=== PATIENT | female | born 1970 | race Caucasian/White ===

== ENCOUNTER → 2019-02-01 | Outpatient (CLI) | payer OTHER ==
[2019-02-01 12:57] LABS: BUN/CREATININE RATIO 11; CREATININE SERUM 0.91 MG/DL (0.60-1.30); GFR ESTIMATED > 60
== END ==
LOC: LAB 12:24
PROVIDERS: ATTEND Internal Medicine Critical Care Medicine
DX: R05 Cough (principal); R06.00 Dyspnea, unspecified; G47.10 Hypersomnia, unspecified; G47.50 Parasomnia, unspecified; E07.9 Disorder of thyroid, unspecified
CPT/HCPCS: 36415; 82565; 84520

== ENCOUNTER → 2019-02-01 | Outpatient (CLI) | payer OTHER ==
[2019-02-01 12:39] LABS: BASOPHILS # (AUTO) 0.1 10^3/uL (0.0-0.1); BASOPHILS % (AUTO) 2 % (0-10); EOSINOPHILS # (AUTO) 0.3 10^3/uL (0.0-0.3); EOSINOPHILS % (AUTO) 4 % (0-10); HEMATOCRIT 32 % (35-52); HEMOGLOBIN 9.8 G/DL (11.5-16.0); LYMPHOCYTES % (AUTO) 31 % (12-44); MEAN CORPUSCULAR HEMOGLOBIN 22 PG (25-34); MEAN CORPUSCULAR HGB CONC 31 G/DL (32-36); MEAN CORPUSCULAR VOLUME 73 FL (80-99); MEAN PLATELET VOLUME 9.5 FL (7.4-10.4); MONOCYTES # (AUTO) 0.4 X 10^3 (0.0-1.0); MONOCYTES % (AUTO) 7 % (0-12); NEUTROPHILS # (AUTO) 3.6 X 10^3 (1.8-7.8); NEUTROPHILS % (AUTO) 57 % (42-75); PLATELET COUNT 371 10^3/uL (130-400); WHITE BLOOD COUNT 6.4 10^3/uL (4.3-11.0)
[2019-02-01 12:59] LABS: ALANINE AMINOTRANSFERASE 15 U/L (0-55); ALBUMIN 3.7 GM/DL (3.2-4.5); ALKALINE PHOSPHATASE 86 U/L (40-136); BILIRUBIN,TOTAL 0.3 MG/DL (0.1-1.0); BUN/CREATININE RATIO 11; CALCIUM 8.9 MG/DL (8.5-10.1); CARBON DIOXIDE 22 MMOL/L (21-32); CHLORIDE 108 MMOL/L (98-107); CHOLESTEROL 213 MG/DL (< 200); CREATININE SERUM 0.88 MG/DL (0.60-1.30); GFR ESTIMATED > 60; GLUCOSE 85 MG/DL (70-105); HDL CHOLESTEROL 47 MG/DL (40-60); POTASSIUM 3.9 MMOL/L (3.6-5.0); SODIUM 138 MMOL/L (135-145); TOTAL PROTEIN 7.3 GM/DL (6.4-8.2); TRIGLYCERIDES 112 MG/DL (<150); VLDL CHOLESTEROL 22 MG/DL (5-40)
--- NOTE | 2019-02-01 17:39 | Diagnostic Imaging Report ---
EXAM: Bilateral diagnostic mammogram INDICATION: Left breast lump. CORRELATION is made with prior mammogram from 09/13/2016. TECHNIQUE: 2D and 3D bilateral diagnostic mammography was performed. FINDINGS: Both breasts are heterogeneously dense, limiting the sensitivity of mammography. A BB marker was placed at the area of palpable abnormality, upper-outer left breast. No underlying abnormality is seen. No mass or malignant-appearing microcalcifications are seen. The axillae are unremarkable. IMPRESSION: BI-RADS 0. No mammographic features suspicious for malignancy are identified. Even so, sonographic interrogation of the area of palpable abnormality in the upper-outer left breast is recommended and will be performed today. ACR BI-RADS Category 0: Incomplete. (Needs additional imaging evaluation). Result letter will be mailed to the patient. Note: At least 10% of breast cancer is not imaged by mammography. Dictated by: Dictated on workstation # [id number]
--- NOTE | 2019-02-01 20:05 | Diagnostic Imaging Report ---
INDICATION: Left breast lump. FINDINGS: Sonographic interrogation of the area of interest in the upper-outer left breast was performed. No sonographic abnormality is seen. No solid or cystic mass is detected. IMPRESSION: No sonographic abnormality is detected. Close clinical and self breast exam is recommended to confirm stability of the palpable abnormality. ACR BI-RADS Category 1: Negative. Dictated by: Dictated on workstation # [id number]
== END ==
LOC: RAD 12:16
PROVIDERS: ATTEND Internal Medicine
DX: N63.20 Unspecified lump in the left breast, unspecified quadrant (principal); E03.9 Hypothyroidism, unspecified; R73.09 Other abnormal glucose; D64.9 Anemia, unspecified
CPT/HCPCS: 36415; 76642; 77066; 80053; 80061; 83036; 84443; 85025

== ENCOUNTER → 2019-03-03 | Outpatient (CLI) | payer OTHER ==
[~2019-03-03] MED LIST: RT-ALBUTEROL SULF 2.5 MG/3 ML PRE-MIX VIAL INH ONE
== END ==
LOC: RT 09:38 → EDUNIT# 09:45
PROVIDERS: ATTEND Internal Medicine Critical Care Medicine
DX: R05 Cough (principal); R06.00 Dyspnea, unspecified; G47.10 Hypersomnia, unspecified; G47.50 Parasomnia, unspecified; E07.9 Disorder of thyroid, unspecified
CPT/HCPCS: 94060; 94726; 94729

== ENCOUNTER 2020-03-03 12:24 | Emergency (ER) | payer OTHER ==
[~2020-03-03] VITALS: Ht 162.5 cm; Wt 121.8 kg
[2020-03-03] MEDS ORDERED: BENZONATATE 100 MG (TESSALON) CAPSULE PO ONE (12:32)
--- OUTSIDE RECORDS SUMMARY | 2020-03-03 12:34 | XMS REPORT ---
Author Author Hilda Syed [facility] Address [address] [place], [place] [id number] Care Team Providers Care Middle [employer] Technology Teacher Name Role Phone Gold Syed PCP Unavailable Allergies and Adverse Reactions Name Reaction Notes SULFA (SULFONAMIDES) PENICILLINS tramadol Plan of Treatment Not available. Medications Active Name Start Date Estimated Completion Date SIG Co mments tolterodine 4 mg oral capsule,extended release 24hr 09/10/2016 09/05/2017 take 1 capsule (4 mg) by oral route once daily for 90 days Synthroid 200 mcg oral tablet 09/10/2016 09/05/2017 ta ke 1 tablet (200 mcg) by oral route once daily for 90 days Synthroid 25 mcg oral tablet 09/10/2016 09/05/2017 paz e 1 tablet (25 mcg) by oral route once daily for 90 days Name Start Date Expiration Date SIG Comments metronidazole 500 mg oral tablet 09/20/2016 09/25/2016 take 1 tablet by oral route 2 times a day for 5 days Discontinued Name Start Date Discontinued Date SIG Comments oxybutynin chloride 5 mg oral tablet 09/10/2016 take 1 tablet (5 mg) by oral route 2 times per day Problem List Description Status Onset Hypothyroidism Active Overactive bladder Active Precancerous changes of the cervix Active Vital Signs Date Time BP-Sys(mm[Hg] BP-Mariann(mm[Hg]) HR(bpm) RR(rpm) Temp WT HT HC BMI BSA BMI Percentile O2 Sat(%) 09/10/2016 9:24:00 AM 148 mmHg 82 mmHg 70 bpm 18 rpm 99.5 F 245 lbs 64 in 42.05 kg/m2 2.24 m2 97 % Social History Name Description Comments Tobacco Former smoker History of Procedures Date Ordered Description Order Status 09/10/2016 10:30 AM URINALYSIS AUTO W/O SCOPE Reviewed 09/10/2016 12:00 AM CYTOPATH C/V THIN LAYER Reviewed 09/10/2016 12:00 AM Screening mammography, bilateral Reviewe d 09/10/2016 12:00 AM ASSAY THYROID STIM HORMONE Reviewed 09/10/2016 12:00 AM ASSAY OF FREE THYROXINE Reviewed Results Summary Data and Description Results 09/10/2016 10:30 AM Clarity Ur clear Color Ur lt . yellow Glucose Ur-sCnc negative Bilirub Ur Ql Strip negative Ketones Ur Ql Strip negative Sp Gr Ur Qn <=1.005 Hgb Ur Ql Strip trace-lysed pH Ur-LsCnc 7.0 Prot Ur Ql Strip negative Urobilinogen Ur-mCnc 0.2 Nitrite Ur Ql Strip negative WBC Est Ur Ql Strip negative 09/12/2016 10:15 AM TSH 8.750 uIU/mLFREE T4 1.04 History Of Immunizations Not available. History of Past Illness Name Date of Onset Comments Hypothyroidism Overactive bladder Precancerous changes of the cervix Hypothyroidism Sep 10 2016 9:26AM Encounter for gynecological examination without abnorm al finding Sep 10 2016 9:26AM Visit for screening mammogram Sep 10 2016 9:26AM Mixed incontinence Sep 10 2016 9:26AM Payers Insurance Name Company Name Plan Name Plan Number Policy Number Donnell cy Group Number [id number] N/ A History of Encounters Visit Date Visit Type Provider 09/10/2016 Office visit Gold Syed DO
--- OUTSIDE RECORDS SUMMARY | 2020-03-03 12:35 | XMS REPORT ---
Author Hilda Stack [facility] Address [address] [place], [place] [id number] Care Team Providers Care Strap Cutting Machine Operator Name Role Phone Gold Syed PCP Gold Syed PreferredProvider Allergies and Adverse Reactions Name Reaction Notes SULFA (SULFONAMIDES) PENICILLINS tramadol Plan of Treatment Planned Activity Comments Planned Date Planned Time Plan/Goal US ABD LTD (SINGLE ORGAN) 04/17/2018 12:00 AM Hepatobiliary scan 04/16/2018 12:00 AM Medications Active Name Start Date Estimated Completion Date SIG Co mments bupropion HCl 150 mg oral tablet extended release 24 hr 8 02/25/2019 TAKE 1 TABLET (150 MG) BY ORAL ROUTE ONCE DAILY for 90 days cyclobenzaprine 10 mg oral tablet 03/02/2018 TAKE 1 TABLET (10 MG) BY ORAL ROUTE 2 TIMES PER DAY NEEDED paroxetine HCl 20 mg oral tablet 03/02/2018 02/25/2019 TAKE 1 TABLET (20 MG) BY ORAL ROUTE ONCE DAILY FOR 30 DAYS for 90 days ProAir HFA 90 mcg/actuation inhalation HFA aerosol inhaler 2017 INHALE 1 PUFF (90 MCG) BY INHALATION ROUTE EVERY 6 HOURS NEEDED Synthroid 200 mcg oral tablet 03/02/2018 TA KE 1 TABLET (200 MCG) BY ORAL ROUTE ONCE DAILY FOR 90 DAYS Synthroid 25 mcg oral tablet 03/02/2018 PAZ E 1 TABLET (25 MCG) BY ORAL ROUTE ONCE DAILY FOR 90 DAYS Name Start Date Expiration Date SIG Comments metronidazole 500 mg oral tablet 09/20/2016 09/25/2016 take 1 tablet by oral route 2 times a day for 5 days promethazine 25 mg oral tablet 01/26/2018 01/26/2018 T SONU 1 TABLET (25 MG) BY ORAL ROUTE ONCE DAILY AT BEDTIME NEEDED Discontinued Name Start Date Discontinued Date SIG Comments oxybutynin chloride 5 mg oral tablet 09/10/2016 take 1 tablet (5 mg) by oral route 2 times per day tolterodine 4 mg oral capsule,extended release 24hr 09/10/2016 07/21/2017 take 1 capsule (4 mg) by oral route once daily for 90 days doxycycline hyclate 100 mg oral tablet 11/25/2016 01/01/2017 take 1 tablet (100 mg) by oral route 2 times per day prednisone 20 mg oral tablet 11/25/2016 01/01/2017 paz e 1 tablet (20 mg) by oral route once daily for 5 days Breo Ellipta 200-25 mcg/dose inhalation blister with device 11/2501/01/2017 inhale 1 puff by inhalation route once daily at the same time each day Didn't like the powder Dulera 200-5 mcg/actuation inhalation HFA aerosol inhaler 01/02/20 17 inhale 2 puffs by inhalation route every 12 hours Dulera 200-5 mcg/actuation inhalation HFA aerosol inhaler 017 09/30/2017 INHALE 2 PUFFS BY INHALATION ROUTE EVERY 12 HOURS Toviaz 8 mg oral tablet extended release 24 hr 07/21/2017 1 12/02/2016 take 1 tablet (8 mg) by oral route once daily for 90 days $300 co-pay Levaquin 500 mg oral tablet 07/29/2017 09/15/2017 take 1 tablet by oral route once a day for 7 days benzonatate 200 mg oral capsule 07/29/2017 03/02/2018 take 1 capsule (200 mg) by oral route 3 times per day as needed for cough ciprofloxacin HCl 500 mg oral tablet 09/15/2017 03/02/2018 take 1 tablet (500 mg) by oral route every 12 hours for 5 days Symbicort 160-4.5 mcg/actuation inhalation HFA aerosol inhal er 09/30/2017 10/02/2017 inhale 2 puffs by inhalation route 2 sharla es per day in the morning and evening $300 co-pay tolterodine 4 mg oral capsule,extended release 24hr 10/02/2017 10/08/2017 take 1 capsule (4 mg) by oral route once daily for 90 days oxybutynin chloride 10 mg oral tablet extended release 24hr 10/0803/02/2018 take 1 tablet (10 mg) by oral route once daily for 90 days prednisone 20 mg oral tablet 03/02/2018 04/16/2018 paz e 2 tablets (40 mg) by oral route once daily for 3 days then 1 tablet daily for 3 days then 0.5 daily x 2 days tolterodine 4 mg oral capsule,extended release 24hr 03/02/2018 04/16/2018 take 1 capsule (4 mg) by oral route once daily for 90 days "cannot afford this" Advair Diskus 250-50 mcg/dose inhalation blister with device 03/02/2018 04/16/2018 inhale 1 puff by inhalation route 2 time s per day in the morning and evening approximately 12 hours apart "cannot afford it" Problem List Description Status Onset Hypothyroidism Active Overactive bladder Active Precancerous changes of the cervix Active Vital Signs Date Time BP-Sys(mm[Hg] BP-Mariann(mm[Hg]) HR(bpm) RR(rpm) Temp WT HT HC BMI BSA BMI Percentile O2 Sat(%) 04/16/2018 2:53:00 PM 138 mmHg 84 mmHg 75 bpm 20 rpm 98.8 F 259 lbs 64 in 44.4568 kg/m 2.3032 m 97 % 03/02/2018 2:25:00 PM 142 mmHg 72 mmHg 94 bpm 18 rpm 98.1 F 259 lbs 64 in 44.46 kg/m2 2.30 m2 97 % 09/15/2017 2:35:00 PM 136 mmHg 80 mmHg 80 bpm 18 rpm 99.7 F 254 lbs 64 in 43.5986 kg/m 2.2809 m 97 % 07/29/2017 10:56:00 AM 148 mmHg 80 mmHg 84 bpm 22 rpm 98.9 F 255 lbs 64 in 43.77 kg/m2 2.29 m2 97 % 04/10/2017 9:16:00 AM 132 mmHg 82 mmHg 91 bpm 18 rpm 97.5 F 256.125 lbs 64 i n 43.9633 kg/m 2.2904 m 98 % 01/01/2017 10:42:00 AM 128 mmHg 70 mmHg 64 bpm 18 rpm 98.4 F 249 lbs 64 in 42.74 kg/m2 2.26 m2 97 % 11/25/2016 10:48:00 AM 126 mmHg 70 mmHg 76 bpm 20 rpm 98.5 F 245 lbs 64 in 42.0537 kg/m 2.2401 m 98 % 09/10/2016 9:24:00 AM 148 mmHg 82 mmHg 70 bpm 18 rpm 99.5 F 245 lbs 64 in 42.0537 kg/m 2.24 m2 97 % Social History Name Description Comments Tobacco Former smoker History of Procedures Date Ordered Description Order Status 09/10/2016 10:30 AM URINALYSIS AUTO W/O SCOPE Reviewed 09/10/2016 12:00 AM CYTOPATH C/V THIN LAYER Reviewed 09/10/2016 12:00 AM Screening mammography, bilateral Reviewe d 09/10/2016 12:00 AM ASSAY THYROID STIM HORMONE Reviewed 09/10/2016 12:00 AM ASSAY OF FREE THYROXINE Reviewed 07/29/2017 12:00 AM CHEST X-RAY 2VW FRONTAL&LATL Reviewed 09/15/2017 2:56 PM URINALYSIS AUTO W/O SCOPE Reviewed 03/02/2018 12:00 AM RADEX SHOULDER COMPLETE MINIMUM 2 VIEWS Reviewed Results Summary Date and Description Results 09/10/2016 10:30 AM Clarity [...] 10:15 AM TSH 8.750 uIU/mLFREE T4 1.04 09/15/2017 2:56 PM Clarity Ur cloudy Urine-[place] r lt. yellow Glucose Ur-sCnc negative Bilirub Ur Ql negative Ketones Ur Ql Strip negative Sp Gr Ur Qn 1.015 Hgb Ur Ql Strip trace- intact pH Ur-LsCnc 7.0 Prot Ur Ql Strip negative Urobilinogen Ur-mCnc 0.2 Nitrite Ur Ql Strip negative WBC # Ur negative History Of Immunizations Not available. History of Past Illness Name Date of Onset Comments Hypothyroidism Overactive bladder Precancerous changes of the cervix Hypothyroidism Sep 10 2016 9:26AM Encounter for gynecological examination without abnorm al finding Sep 10 2016 9:26AM Visit for screening mammogram Sep 10 2016 9:26AM Mixed incontinence Sep 10 2016 9:26AM Allergic bronchitis, mild persistent, with acute exace rbation Nov 25 2016 10:50AM Chronic bronchitis Jan 01 2017 10:44AM Depression with anxiety Apr 10 2017 9:18AM Acute bronchitis Jul 29 2017 10:59AM Dysuria Sep 15 2017 2:37PM Shoulder pain, right Mar 02 2018 2:28PM Right upper quadrant abdominal pain Apr 16 2018 2:54PM RUQ pain Apr 17 2018 11:32AM Nausea Apr 17 2018 11:32AM Payers Insurance Name Company Name Plan Name Plan Number Policy Number Donnell cy Group Number Start Date [facility] [id number] N[facility]A [id number], [facility] History of Encounters Visit Date Visit Type Provider 04/16/2018 Office visit Gold Syed DO 03/02/2018 Office visit Gold Syed DO 09/15/2017 Office visit Gold Syed DO 07/29/2017 Office visit Gold Syed DO 04/10/2017 Office visit Gold Syed DO 01/01/2017 Office visit Gold Syed DO 11/25/2016 Office visit Gold Syed DO 09/10/2016 Office visit Gold Syed DO
--- OUTSIDE RECORDS SUMMARY | 2020-03-03 12:35 | XMS REPORT ---
Author Author Hilda Syed [facility] Address [address] [place], [place] [address] Care Team Providers Care Tattoo Technician Name Role Phone Gold Syed PCP Gold Syed PreferredProvider Allergies and Adverse Reactions Name Reaction Notes SULFA (SULFONAMIDES) PENICILLINS tramadol Plan of Treatment Not available. Medications Active Name Start Date Estimated Completion Date SIG Co mments paroxetine HCl 20 mg oral tablet 04/10/2017 10/07/2017 take 1 tablet (20 mg) by oral route once daily for 30 days benzonatate 200 mg oral capsule 07/29/2017 take 1 capsule (200 mg) by oral route 3 times per day as needed for cough cyclobenzaprine 10 mg oral tablet 09/15/2017 take 1 tablet (10 mg) by oral route 2 times per day as needed ciprofloxacin HCl 500 mg oral tablet 09/15/2017 take 1 tablet (500 mg) by oral route every 12 hours for 5 days Synthroid 200 mcg oral tablet 09/26/2017 09/21/2018 TA KE 1 TABLET (200 MCG) BY ORAL ROUTE ONCE DAILY FOR 90 DAYS Synthroid 25 mcg oral tablet 09/26/2017 09/21/2018 PAZ E 1 TABLET (25 MCG) BY ORAL ROUTE ONCE DAILY FOR 90 DAYS Advair Diskus 250-50 mcg/dose inhalation blister with device inhale 1 puff by inhalation route 2 times per day in the morning and evening approximately 12 hours apart tolterodine 4 mg oral capsule,extended release 24hr 10/02/2017 take 1 capsule (4 mg) by oral route once daily for 90 days Name Start Date Expiration Date SIG Comments metronidazole 500 mg oral tablet 09/20/2016 09/25/2016 take 1 tablet by oral route 2 times a day for 5 days bupropion HCl 150 mg oral tablet extended release 24 hr 07/08/2017 07/08/2017 TAKE 1 TABLET (150 MG) BY ORAL ROUTE ONCE DAILY ProAir HFA 90 mcg/actuation inhalation HFA aerosol inhaler 1 11/26/2016 09/26/2017 INHALE 1 PUFF (90 MCG) BY INHALATION ROUTE EVERY 6 DEENA RS NEEDED Discontinued Name Start Date Discontinued Date [...] mg oral tablet extended release 24 hr 07/21/201712/02/2016 take 1 tablet (8 mg) by oral route once daily for 90 days Toviaz 8 mg oral tablet extended release 24 hr 07/21/201712/02/2016 take 1 tablet (8 mg) by oral route once daily for 90 days $300 co-pay Levaquin 500 mg oral tablet 07/29/2017 09/15/2017 take 1 tablet by oral route once a day for 7 days promethazine 25 mg oral tablet 07/29/2017 09/15/2017 t bam 1 tablet (25 mg) by oral route once daily at bedtime as needed Symbicort 160-4.5 mcg/actuation inhalation HFA aerosol inhal er 09/30/2017 10/02/2017 inhale 2 puffs by inhalation route 2 sharla es per day in the morning and evening Symbicort 160-4.5 mcg/actuation inhalation HFA aerosol inhal er 09/30/2017 10/02/2017 inhale 2 puffs by inhalation route 2 sharla es per day in the morning and evening $300 co-pay Problem List Description Status Onset Hypothyroidism Active Overactive bladder Active Precancerous changes of the cervix Active Vital Signs Date Time BP-Sys(mm[Hg] BP-Mariann(mm[Hg]) HR(bpm) RR(rpm) Temp WT HT HC BMI BSA BMI Percentile O2 Sat(%) 09/15/2017 2:35:00 PM 136 mmHg 80 mmHg 80 bpm 18 rpm 99.7 F 254 lbs 64 in 43.60 kg/m2 2.28 m2 97 % 07/29/2017 10:56:00 AM 148 mmHg 80 mmHg 84 bpm 22 rpm 98.9 F 255 lbs 64 in 43.7702 kg/m 2.2854 m 97 % 04/10/2017 9:16:00 AM 132 mmHg 82 mmHg 91 bpm 18 rpm 97.5 F 256.125 lbs 64 i n 43.96 kg/m2 2.29 m2 98 % 01/01/2017 10:42:00 AM 128 mmHg 70 mmHg 64 bpm 18 rpm 98.4 F 249 lbs 64 in 42.7403 kg/m 2.2583 m 97 % 11/25/2016 10:48:00 AM 126 mmHg 70 mmHg 76 bpm 20 rpm 98.5 F 245 lbs 64 in 42.05 kg/m2 2.24 m2 98 % 09/10/2016 9:24:00 AM 148 mmHg 82 mmHg 70 bpm 18 rpm 99.5 F 245 lbs 64 in 42.0537 kg/m 2.2401 m 97 % Social History Name Description Comments [...] 2:56 PM URINALYSIS AUTO W/O SCOPE Reviewed Results Summary Date and Description Results [...] 1.04 09/15/2017 2:56 PM Clarity Ur cloudy Urine-[place] r lt. yellow Glucose Ur-sCnc negative Bilirub [...] 2017 10:59AM Dysuria Sep 15 2017 2:37PM Payers Insurance Name Company Name Plan Name Plan Number Policy Number Donnell Group Number Start Date [facility] [id number] N/A [id number] N/ A History of Encounters Visit Date Visit Type Provider 09/15/2017 Office visit Gold Syed DO 07/29/2017 Office visit Gold Syed DO 04/10/2017 Office visit Gold Syed DO 01/01/2017 Office visit Gold Syed DO 11/25/2016 Office visit Gold Syed DO 09/10/2016 Office visit Gold Syed DO
--- OUTSIDE RECORDS SUMMARY | 2020-03-03 12:35 | XMS REPORT ---
Author Author Hilda Syed Organization [facility] Address [address] [place], [place] [address] Care Team Providers Care Press Department Manager Name Role Phone Gold Syed PCP Unavailable Gold Syed PreferredProvider Unavailable Allergies and Adverse Reactions Name Reaction Notes SULFA (SULFONAMIDES) PENICILLINS tramadol Plan of Treatment Not available. Medications Active Name Start Date Estimated Completion Date SIG Co mments Synthroid 200 mcg oral tablet 09/10/2016 09/05/2017 ta ke 1 tablet (200 mcg) by oral route once daily for 90 days Synthroid 25 mcg oral tablet 09/10/2016 09/05/2017 paz e 1 tablet (25 mcg) by oral route once daily for 90 days Dulera 200-5 mcg/actuation inhalation HFA aerosol inhaler 01/02/20 17 inhale 2 puffs by inhalation route every 12 hours ProAir HFA 90 mcg/actuation inhalation HFA aerosol inhaler 017 inhale 1 puff (90 mcg) by inhalation route every 6 hours as needed Dulera 200-5 mcg/actuation inhalation HFA aerosol inhaler 017 INHALE 2 PUFFS BY INHALATION ROUTE EVERY 12 HOURS paroxetine HCl 20 mg oral tablet 04/10/2017 10/07/2017 take 1 tablet (20 mg) by oral route once daily for 30 days Toviaz 8 mg oral tablet extended release 24 hr 07/21/2017 take 1 tablet (8 mg) by oral route once daily for 90 days Levaquin 500 mg oral tablet 07/29/2017 take 1 tablet by oral route once a day for 7 days benzonatate 200 mg oral capsule 07/29/2017 take 1 capsule (200 mg) by oral route 3 times per day as needed for cough promethazine 25 mg oral tablet 07/29/2017 t bam 1 tablet (25 mg) by oral route once daily at bedtime as needed Name Start Date Expiration Date SIG Comments metronidazole 500 mg oral tablet 09/20/2016 09/25/2016 take 1 tablet by oral route 2 times a day for 5 days bupropion HCl 150 mg oral tablet extended release 24 hr 07/08/2017 07/08/2017 TAKE 1 TABLET (150 MG) BY ORAL ROUTE ONCE DAILY Discontinued Name Start Date Discontinued Date SIG [...] time each day Didn't like the powder Problem List Description Status Onset Hypothyroidism Active Overactive bladder Active Precancerous changes of the cervix Active Vital Signs Date Time BP-Sys(mm[Hg] BP-Mariann(mm[Hg]) HR(bpm) RR(rpm) Temp WT HT HC BMI BSA BMI Percentile O2 Sat(%) 07/29/2017 10:56:00 AM 148 mmHg 80 mmHg [...] 12:00 AM CHEST X-RAY 2VW FRONTAL&LATL Reviewed Results Summary Date and Description Results [...] 9:18AM Acute bronchitis Jul 29 2017 10:59AM Payers Insurance Name Company Name Plan Name Plan Number Policy Number Donnell cy Group Number Start Date [facility] [id number] N[id number] N/ A History of Encounters Visit Date Visit Type Provider 07/29/2017 Office visit Gold Syed DO 04/10/2017 Office visit Gold Syed DO 01/01/2017 Office visit Gold Syed DO 11/25/2016 Office visit Gold Syed DO 09/10/2016 Office visit Gold Syed DO
--- OUTSIDE RECORDS SUMMARY | 2020-03-03 12:35 | XMS REPORT ---
Author Author Hilda Syed Organization [facility] Address [address] [place], [place] [address] Care Team Providers Care Director Of Advertising Sales Name Role Phone Gold Syed PCP Unavailable [...] inhalation route every 6 hours as needed bupropion HCl 150 mg oral tablet extended release 24 hr 01/01/2017 take 1 tablet (150 mg) by oral route once daily Name Start Date Expiration Date SIG Comments metronidazole 500 mg oral tablet 09/20/2016 09/25/2016 take 1 tablet by oral route 2 times a day for 5 days Discontinued Name Start Date Discontinued Date SIG Comments oxybutynin chloride 5 mg oral tablet 09/10/2016 take 1 tablet (5 mg) by oral route 2 times per day doxycycline hyclate 100 mg oral tablet 11/25/2016 [...] HC BMI BSA BMI Percentile O2 Sat(%) 01/01/2017 10:42:00 AM 128 mmHg 70 mmHg [...] 10:50AM Chronic bronchitis Jan 01 2017 10:44AM Payers Insurance Name Company Name Plan Name Plan Number Policy Number Donnell cy Group Number [id number] N/ A History of Encounters Visit Date Visit Type Provider 01/01/2017 Office visit Gold Syed DO 11/25/2016 Office visit Gold Syed DO 09/10/2016 Office visit Gold Syed DO
--- OUTSIDE RECORDS SUMMARY | 2020-03-03 12:35 | XMS REPORT ---
Author Author Hilda Syed [facility] Address [address] [place], [place] [id number] Care Team Providers Care Maintenance Mechanic Helper Name Role Phone Gold Syed PCP Gold Syed PreferredProvider Allergies and Adverse Reactions Name Reaction Notes SULFA (SULFONAMIDES) PENICILLINS tramadol Plan of Treatment Planned Activity Comments Planned Date Planned Time Plan/Goal Hepatobiliary scan 04/16/2018 12:00 AM US ABD LTD (SINGLE ORGAN) 04/17/2018 12:00 AM Medications Active Name Start Date [...] 1.04 09/15/2017 2:56 PM Clarity Ur cloudy Urine-[place] r lt. yellow Glucose Ur-sCnc negative Bilirub [...] Number Donnell cy Group Number Start Date [facility] [id number] N/A [facility] [id number] [facility], 2016 History of Encounters Visit Date [...]
--- OUTSIDE RECORDS SUMMARY | 2020-03-03 12:35 | XMS REPORT ---
Author Author Hilda Syed [facility] Address [address] [place], [place] [address] Care Team Providers Care Laborer Electroplating Name Role Phone Gold Syed PCP Gold [...] oral route once daily for 90 days benzonatate 200 mg oral capsule 07/29/2017 [...] ORAL ROUTE ONCE DAILY FOR 90 DAYS Symbicort 160-4.5 mcg/actuation inhalation HFA aerosol inhaler 1 11/30/2016 inhale 2 puffs by inhalation route 2 times per day in the morning and evening Name Start Date Expiration Date SIG Comments [...] PUFFS BY INHALATION ROUTE EVERY 12 HOURS Levaquin 500 mg oral tablet 07/29/2017 09/15/2017 take 1 tablet by oral route once a day for 7 days promethazine 25 mg oral tablet 07/29/2017 09/15/2017 t bam 1 tablet (25 mg) by oral route once daily at bedtime as needed Problem List Description Status Onset Hypothyroidism Active [...] 1.04 09/15/2017 2:56 PM Clarity Ur cloudy Urine-[place] r lt. yellow Glucose Ur-sCnc negative Bilirub [...] Number Donnell cy Group Number Start Date [facility] [id number] N/A [facility] [id number] N/ A History of Encounters Visit Date Visit Type Provider 09/15/2017 Office visit Gold Syed DO 07/29/2017 Office visit Gold Syed DO 04/10/2017 Office visit Gold Syed DO 01/01/2017 Office visit Gold Syed DO 11/25/2016 Office visit Gold Syed DO 09/10/2016 Office visit Gold Syed DO
--- OUTSIDE RECORDS SUMMARY | 2020-03-03 12:35 | XMS REPORT ---
Author Author Hilda Syed [facility] Address [address] [place], [place] [id number] Care Team Providers Care Pin Inserter Regulator Name Role Phone Gold Syed PCP Unavailable Gold Syed PreferredProvider Unavailable Allergies and Adverse Reactions Name Reaction Notes SULFA (SULFONAMIDES) PENICILLINS tramadol Plan of Treatment Not available. Medications Active Name Start Date Estimated Completion Date SIG Co mments Dulera 200-5 mcg/actuation inhalation HFA aerosol inhaler [...] route every 12 hours for 5 days Name Start Date Expiration Date SIG Comments Synthroid 200 mcg oral tablet 09/10/2016 09/05/2017 ta ke 1 tablet (200 mcg) by oral route once daily for 90 days Synthroid 25 mcg oral tablet 09/10/2016 09/05/2017 paz e 1 tablet (25 mcg) by oral route once daily for 90 days metronidazole 500 mg oral tablet 09/20/2016 09/25/2016 [...] time each day Didn't like the powder Levaquin 500 mg oral tablet 07/29/2017 09/15/2017 [...] 1.04 09/15/2017 2:56 PM Clarity Ur cloudy Urine-[place] r lt. yellow Glucose Ur-sCnc negative Bilirub [...] Number Donnell cy Group Number Start Date [facility] [id number] N[id number] N/ A History of Encounters Visit Date Visit Type Provider 09/15/2017 Office visit Gold Syed DO 07/29/2017 Office visit Gold Syed DO 04/10/2017 Office visit Gold Syed DO 01/01/2017 Office visit Gold Syed DO 11/25/2016 Office visit Gold Syed DO 09/10/2016 Office visit Gold Syed DO
--- OUTSIDE RECORDS SUMMARY | 2020-03-03 12:35 | XMS REPORT ---
Author Author Hilda Syed [facility] Address [address] [place], [place] [phone] Care Team Providers Care Steam Room Attendant Name Role Phone Gold Syed PCP Gold [...] 1.04 09/15/2017 2:56 PM Clarity Ur cloudy Urine-[place] r lt. yellow Glucose Ur-sCnc negative Bilirub [...] Number Donnell cy Group Number Start Date [facility] [id number] N[id number] [facility], 2016 History of Encounters Visit Date Visit [...]
--- OUTSIDE RECORDS SUMMARY | 2020-03-03 12:35 | XMS REPORT ---
Author Hilda Stack Organization [facility] Address [address] [place], [place] [phone] Care Team Providers Care Rim Technician Name Role Phone Gold Syed PCP Unavailable Allergies and Adverse Reactions Name Reaction Notes SULFA (SULFONAMIDES) PENICILLINS tramadol Plan of Treatment Planned Activity Comments Planned Date Planned Time Plan/Goal Pap smear 09/10/2016 12:00 AM TSH 09/10/2016 12:00 AM T4 FREE 09/10/2016 12:00 AM Medications Active Name Start Date [...] oral route once daily for 90 days Discontinued Name Start Date Discontinued Date [...] Comments Tobacco Former smoker History of Procedures Not available. Results Summary Not available. History Of Immunizations Not available. History of [...] Donnell cy Group Number [id number] N/ A History of Encounters Visit Date Visit Type Provider 09/10/2016 Office visit Gold Syed DO
--- OUTSIDE RECORDS SUMMARY | 2020-03-03 12:36 | XMS REPORT ---
Author Author Hilda Syed [facility] Address [address] [place], [place] [phone] Care Team Providers Care Gear Inspector Name Role Phone oGld Syed PCP Gold Syed PreferredProvider Allergies and Adverse Reactions Name Reaction Notes SULFA (SULFONAMIDES) PENICILLINS tramadol Plan of Treatment Not available. Medications Active Name Start Date Estimated Completion Date SIG Co mments prednisone 20 mg oral tablet 03/02/2018 paz e 2 tablets (40 mg) by oral route once daily for 3 days then 1 tablet daily for 3 days then 0.5 daily x 2 days tolterodine 4 mg oral capsule,extended release 24hr 03/02/2018 02/25/2019 take 1 capsule (4 mg) by oral route once daily for 90 days Advair Diskus 250-50 mcg/dose inhalation blister with device 02/03 inhale 1 puff by inhalation route 2 times per day in the morning and evening approximately 12 hours apart bupropion HCl 150 mg oral tablet extended [...] oral route once daily for 90 days Problem List Description Status Onset Hypothyroidism Active Overactive bladder Active Precancerous changes of the cervix Active Vital Signs Date Time BP-Sys(mm[Hg] BP-Mariann(mm[Hg]) HR(bpm) RR(rpm) Temp WT HT HC BMI BSA BMI Percentile O2 Sat(%) 03/02/2018 2:25:00 PM 142 mmHg 72 mmHg 94 bpm 18 rpm 98.1 F 259 lbs 64 in 44.4568 kg/m 2.3032 m 97 % 09/15/2017 2:35:00 PM 136 mmHg [...] 1.04 09/15/2017 2:56 PM Clarity Ur cloudy Urine-[place] r lt. yellow Glucose Ur-sCnc negative Bilirub [...] Shoulder pain, right Mar 02 2018 2:28PM Payers Insurance Name Company Name Plan Name Plan Number Policy Number Donnell cy Group Number Start Date [facility] [id number] N/A BCBS [facility] [id number] [facility], 2016 History of Encounters Visit Date Visit Type Provider 03/02/2018 Office visit Gold Syed DO 09/15/2017 Office visit Gold Syed DO 07/29/2017 Office visit Gold Syed DO 04/10/2017 Office visit Gold Syed DO 01/01/2017 Office visit Gold Syed DO 11/25/2016 Office visit Gold Syed DO 09/10/2016 Office visit Gold Syed DO
--- OUTSIDE RECORDS SUMMARY | 2020-03-03 12:36 | XMS REPORT ---
Author Author Hilda Syed Organization [facility] Address [address] [place], [place] [phone] Care Team Providers Care District Plant Supervisor Name Role Phone Gold Syed PCP Unavailable [...] C/V THIN LAYER Reviewed 09/10/2016 12:00 AM ASSAY THYROID STIM HORMONE [...] Number Donnell cy Group [facility] [id number] N/ A History of Encounters Visit Date Visit Type Provider 09/10/2016 Office visit Gold Syed DO
--- OUTSIDE RECORDS SUMMARY | 2020-03-03 12:36 | XMS REPORT ---
Author Author Hilda Syed Organization [facility] Address [address] [place], [place] [phone] Care Team Providers Care Patient Resource Specialist Name Role Phone Gold Syed PCP Unavailable [...] (150 mg) by oral route once daily Dulera 200-5 mcg/actuation inhalation HFA aerosol inhaler 017 INHALE 2 PUFFS BY INHALATION ROUTE EVERY 12 HOURS paroxetine HCl 20 mg oral tablet 04/10/2017 10/07/2017 take 1 tablet (20 mg) by oral route once daily for 30 days Name Start Date Expiration Date SIG [...] HC BMI BSA BMI Percentile O2 Sat(%) 04/10/2017 9:16:00 AM 132 mmHg 82 mmHg [...] ASSAY OF FREE THYROXINE Reviewed Results Summary Date and Description Results [...] Depression with anxiety Apr 10 2017 9:18AM Payers Insurance Name Company Name Plan Name Plan Number Policy Number Donnell cy Group Number [id number] N/ A History of Encounters Visit Date Visit Type Provider 04/10/2017 Office visit Gold Syed DO 01/01/2017 Office visit Gold Syed DO 11/25/2016 Office visit Gold Syed DO 09/10/2016 Office visit Gold Syed DO
--- OUTSIDE RECORDS SUMMARY | 2020-03-03 12:36 | XMS REPORT ---
Author Hilda Stack Organization [facility] Address [address] [place], [place] [phone] Care Team Providers Care Pencil Inspector Name Role Phone Gold Syed PCP Unavailable Allergies and Adverse Reactions Name Reaction Notes SULFA (SULFONAMIDES) PENICILLINS tramadol Plan of Treatment Planned Activity Comments Planned Date Planned Time Plan/Goal Pap smear 09/10/2016 12:00 AM Medications Active Name Start [...] AUTO W/O SCOPE Reviewed 09/10/2016 12:00 AM ASSAY THYROID STIM [...] Donnell cy Group Number Start Date BCBS [facility] [id number] N/ A History of Encounters Visit Date Visit Type Provider 09/10/2016 Office visit Gold Syed DO
--- OUTSIDE RECORDS SUMMARY | 2020-03-03 12:36 | XMS REPORT ---
Author Hilda Stack [facility] Address [address] [place], [place] [phone] Care Team Providers Care Floorwalker Name Role Phone Gold Syed PCP Gold Syed PreferredProvider Allergies and Adverse Reactions Name Reaction Notes SULFA (SULFONAMIDES) PENICILLINS tramadol Plan of Treatment Planned Activity Comments Planned Date Planned Time Plan/Goal US ABD LTD (SINGLE ORGAN) 04/17/2018 12:00 AM Hepatobiliary scan 04/16/2018 12:00 AM Hepatobiliary scan 04/22/2018 12:00 AM Medications Active Name Start Date [...] 200-5 mcg/actuation inhalation HFA aerosol inhaler 01/02/20 inhale 2 puffs by inhalation route every [...] 1.04 09/15/2017 2:56 PM Clarity Ur cloudy Urine-[place] r lt. yellow Glucose Ur-sCnc negative Bilirub [...] 2018 11:32AM Nausea Apr 17 2018 11:32AM RUQ abdominal pain Apr 22 2018 11:31AM Payers Insurance Name Company Name Plan Name Plan Number Policy Number Donnell cy Group Number Start Date [facility] [id number] N/[facility] [id number] [facility], 2016 History of Encounters [...]
--- OUTSIDE RECORDS SUMMARY | 2020-03-03 12:36 | XMS REPORT ---
Author Author Hilda Syed [facility] Address [address] [place], [place] [address] Care Team Providers Care Finishing Supervisor Plastic Sheets Name Role Phone Gold Syed PCP Gold [...] 1.04 09/15/2017 2:56 PM Clarity Ur cloudy Urine-[place] r lt. yellow Glucose Ur-sCnc negative Bilirub [...] Number Donnell cy Group Number Start Date [facility] [id number] N/[facility] [id number] [facility], 2016 History of Encounters Visit Date [...]
--- OUTSIDE RECORDS SUMMARY | 2020-03-03 12:36 | XMS REPORT | Continuity of Care Document ---
Author Organization Unknown Address Unknown Phone Unavailable Allergies Active Description Code Type Severity Reaction Onset Reported/Identified Relationship to Patient Clinical Status Yes Penicillins [id number] Drug Aller gy Severe Hives 03/03/2019 Yes Sulfa (Sulfonamide Antibiotics) [id number] Drug Allergy Severe N/A 03/03/20 19 Yes tramadol [id number] Drug Allergy Severe Anaphylaxis 03/03/2019 Medications There is no data. Problems Date Dx Coded Attending Type Code Diagnosis Diagnosed By 02/03/2019 LILIAM LAWLER DO, Ot D64.9 ANEMIA, UNSPECIFIED 02/03/2019 LILIAM LAWLER DO Ot E03.9 HYPOTHYROIDISM, UNSPECIFIED 02/03/2019 LILIAM LAWLER DO Ot N63.20 UNSPECIFIED LUMP IN THE LEFT BREAST, UNS 02/03/2019 LILIAM LAWLER DO Ot R73.09 OTHER ABNORMAL GLUCOSE 02/03/2019 LOURDES KUNZ DO Ot E07. 9 DISORDER OF THYROID, UNSPECIFIED 02/03/2019 LOURDES KUNZ DO, Ot G47. 10 HYPERSOMNIA, UNSPECIFIED 02/03/2019 LOURDES KUNZ DO, Ot G47. 50 PARASOMNIA, UNSPECIFIED 02/03/2019 LOURDES KUNZ DO Ot R05 COUGH 02/03/2019 LOURDES KUNZ DO Ot R06. 00 DYSPNEA, UNSPECIFIED 03/10/2019 LILIAM LAWLER DO Ot D64.9 ANEMIA, UNSPECIFIED 03/10/2019 LILIAM ALWLER DO Ot E03.9 HYPOTHYROIDISM, UNSPECIFIED 03/10/2019 LILIAM LAWLER DO Ot N63.20 UNSPECIFIED LUMP IN THE LEFT BREAST, UNS 03/10/2019 LILIAM LAWLER DO Ot R73.09 OTHER ABNORMAL GLUCOSE 04/20/2019 LOURDES KUNZ DO Ot E07. 9 DISORDER OF THYROID, UNSPECIFIED 04/20/2019 LOURDES KUNZ DO, Ot G47. 10 HYPERSOMNIA, UNSPECIFIED 04/20/2019 ZE DO, LOURDES M Ot G47. 50 PARASOMNIA, UNSPECIFIED 04/20/2019 LOURDES KUNZ DO Ot R05 COUGH 04/20/2019 LOURDES KUNZ DO Ot R06. 00 DYSPNEA, UNSPECIFIED Procedures There is no data. Results Test Result Range Complete blood count (CBC) with automate d white blood cell (WBC) differential - 02/01/19 12:29 Blood leukocytes automated count (number/volume) 6.4 10*3/uL 4.3-11.0 Blood erythrocytes automated count (number/volume) 4.41 10*6/uL 4.35-5.85 Venous blood hemoglobin measurement (mass/volume) 9.8 g/dL 11.5-16.0 Blood hematocrit (volume fraction) 32 % 35-52 Automated erythrocyte mean corpuscular volume 73 [ foz_us] 80-99 Automated erythrocyte mean corpuscular h emoglobin (mass per erythrocyte) 22 pg 25-34 Automated erythrocyte mean corpuscular h emoglobin concentration measurement (mass/volume) 31 g/dL 32-36 Automated erythrocyte distribution width ratio 18. 0 % 10.0- 14.5 Automated blood platelet count (count/volume) 371 10*3/uL 130-400 Automated blood platelet mean volume measurement 9.5 [foz_us] 7.4-10.4 Automated blood neutrophils/100 leukocytes 57 % 42-75 Automated blood lymphocytes/100 leukocytes 31 % 12-44 Blood monocytes/100 leukocytes 7 % 0-12 Automated blood eosinophils/100 leukocytes 4 % 0-10 Automated blood basophils/100 leukocytes 2 % 0-10 Blood neutrophils automated count (number/volume) 3.6 10*3 1.8-7.8 Blood lymphocytes automated count (number/volume) 2.0 10*3 1.0-4.0 Blood monocytes automated count (number/volume) 0. 4 10*3 0.0-1.0 Automated eosinophil count 0.3 10*3/uL 0 .0-0.3 Automated blood basophil count (count/volume) 0.1 10*3/uL 0.0-0.1 Comprehensive metabolic panel - 02/01/19 12:29 Serum or plasma sodium measurement (moles/volume) 138 mmol/L 135-145 Serum or plasma potassium measurement (moles/volume) 3.9 mmol/L 3.6-5.0 Serum or plasma chloride measurement (moles/volume) 108 mmol/L 98-107 Carbon dioxide 22 mmol/L 21-32 Serum or plasma anion gap determination (moles/volume) 8 mmol/L 5-14 Serum or plasma urea nitrogen measurement (mass/volume ) 10 mg/dL 7-18 Serum or plasma creatinine measurement (mass/volume) 0.88 mg/dL 0.60-1.30 Serum or plasma urea nitrogen/creatinine mass ratio 11 NRG Serum or plasma creatinine measurement w ith calculation of estimated glomerular filtration rate > NRG Serum or plasma glucose measurement (mass/volume) 85 mg/dL 70-105 Serum or plasma calcium measurement (mass/volume) 8.9 mg/dL 8.5-10.1 Serum or plasma total bilirubin measurement (mass/volu me) 0.3 mg/dL 0.1-1.0 Serum or plasma alkaline phosphatase donnie surement (enzymatic activity/volume) 86 U/L 40-136 Serum or plasma aspartate aminotransfera se measurement (enzymatic activity/volume) 15 U/L 5-34 Serum or plasma alanine aminotransferase measurement (enzymatic activity/volume) 15 U/L 0-55 Serum or plasma protein measurement (mass/volume) 7.3 g/dL 6.4-8.2 Serum or plasma albumin measurement (mass/volume) 3.7 g/dL 3.2-4.5 CALCIUM CORRECTED 9.1 mg/dL 8.5-10.1 Lipid 1996 panel - 02/01/19 12:29 Serum or plasma triglyceride measurement (mass/volume) 112 mg/dL <150 Serum or plasma cholesterol measurement (mass/volume) 213 mg/dL < 200 Serum or plasma cholesterol in HDL measurement (mass/v olume) 47 mg/dL 40-60 Cholesterol in LDL [mass/volume] in serum or plasma by direct assay 153 mg/dL 1-129 Serum or plasma cholesterol in VLDL measurement (mass/ volume) 22 mg/dL 5-40 THYROID STIMULATING HORMONE - 02/01/19 1 2:29 THYROID STIMULATING HORMONE 13.38 u[iU]/mL 0.35-4.94 Hemoglobin A1c - 02/01/19 12:29 Blood hemoglobin A1C measurement (mass/volume) 5.4 % 4.0-5.6 MEAN BLOOD GLUCOSE 108 % <=126 Encounters ACCT No. Visit Date/Time Discharge Status Pt. Type Provider Facility Loc./Unit Complaint [id number] 05/04/2018 14:34:14 05/04/2018 23:59: 59 CLS Outpatient [facility] [id number] 04/16/2018 15:48:09 04/16/2018 23:59: 59 CLS Outpatient [facility] [id number] 03/02/2018 15:21:04 03/02/2018 23:59: 59 CLS Outpatient Gold Syed [id number] 09/15/2017 15:31:53 09/15/2017 23:59: 59 CLS Outpatient [facility] [id number] 07/29/2017 11:50:21 07/29/2017 23:59: 59 CLS Outpatient [facility] [id number] 04/10/2017 10:06:05 04/10/2017 23:59: 59 CLS Outpatient [facility] [id number] 01/01/2017 11:12:21 01/01/2017 23:59: 59 CLS Outpatient [facility] [id number] 11/25/2016 11:34:50 11/25/2016 23:59: 59 CLS Outpatient [facility] [id number] 09/10/2016 10:14:11 09/10/2016 23:59: 59 CLS Outpatient Gold Syed [id number] 03/03/2019 09:38:00 23:59:59 CLS Outpatient LOURDES KUNZ DO [facility] RT COUGH,DYSPNEA [id number] 02/01/2019 12:24:00 23:59:59 CLS Outpatient LOURDES KUNZ DO [facility] LAB COUGH, DYSPNEA [id number] 02/01/2019 12:16:00 23:59:59 CLS Outpatient LILIAM LAWLER DO [facility] RAD BREAST MASS [id number] 03/03/2019 10:02:00 Document Registration
--- OUTSIDE RECORDS SUMMARY | 2020-03-03 12:36 | XMS REPORT ---
Author Author Hilda Syed Organization [facility] Address [address] [place], [place] [address] Care Team Providers Care It Project Lead Name Role Phone Gold Syed PCP Unavailable [...] doxycycline hyclate 100 mg oral tablet 11/25/2016 take 1 tablet (100 mg) by oral route 2 times per day prednisone 20 mg oral tablet 11/25/2016 paz e 1 tablet (20 mg) by oral route once daily for 5 days Breo Ellipta 200-25 mcg/dose inhalation blister with device 11/25 inhale 1 puff by inhalation route once daily at the same time each day Name Start Date Expiration Date SIG Comments [...] HC BMI BSA BMI Percentile O2 Sat(%) 11/25/2016 10:48:00 AM 126 mmHg 70 mmHg [...] acute exace rbation Nov 25 2016 10:50AM Payers Insurance Name Company Name Plan Name Plan Number Policy Number Donnell cy Group Number [facility] [id number] N/ A History of Encounters Visit Date Visit Type Provider 11/25/2016 Office visit Gold Syed DO 09/10/2016 Office visit Gold Syed DO
[2020-03-03 12:49] LABS: BASOPHILS # (AUTO) 0.1 10^3/uL (0.0-0.1); BASOPHILS % (AUTO) 1 % (0-10); EOSINOPHILS # (AUTO) 0.3 10^3/uL (0.0-0.3); EOSINOPHILS % (AUTO) 4 % (0-10); HEMATOCRIT 34 % (35-52); HEMOGLOBIN 10.1 G/DL (11.5-16.0); LYMPHOCYTES % (AUTO) 30 % (12-44); MEAN CORPUSCULAR HEMOGLOBIN 22 PG (25-34); MEAN CORPUSCULAR HGB CONC 30 G/DL (32-36); MEAN CORPUSCULAR VOLUME 72 FL (80-99); MEAN PLATELET VOLUME 9.6 FL (7.4-10.4); MONOCYTES # (AUTO) 0.6 X 10^3 (0.0-1.0); MONOCYTES % (AUTO) 9 % (0-12); NEUTROPHILS # (AUTO) 3.7 X 10^3 (1.8-7.8); NEUTROPHILS % (AUTO) 56 % (42-75); PLATELET COUNT 329 10^3/uL (130-400); RED CELL DISTRIBUTION WIDTH 23.8 % (10.0-14.5); WHITE BLOOD COUNT 6.5 10^3/uL (4.3-11.0)
--- NOTE | 2020-03-03 12:49 | ED Cough/URI ---
General Chief Complaint: Respiratory Problems Stated Complaint: COUGH,SORE THROAT Source: patient Exam Limitations: no limitations History of Present Illness Date Seen by Provider: March 03, 2020 Time Seen by Provider: 12:30 Initial Comments To ER with reports of awakening this morning noticing a worsening of her chronic cough and shortness of breath. No fever but she has had chills. Cough is nonproductive. She's had a sore throat, myalgias, nausea as well. 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 She does take Abrigo inhaler and Singulair for her chronic cough/shortness of breath. Nonsmoker. Timing/Duration: this morning Severity/Quality: dry cough Associated Symptoms: cough, fever/chills, muscle aches, shortness of breath, sore throat Allergies and Home Medications Allergies Coded Allergies: Penicillins (Unverified Allergy, Severe, Hives, 03/03/19) tramadol (Unverified Allergy, Severe, Anaphylaxis, 03/03/19) Sulfa (Sulfonamide Antibiotics) (Unverified Adverse Reaction, Severe, 03/03/19) neromuscular response Patient Home Medication List Home Medication List Reviewed: Yes Review of Systems Review of Systems Constitutional: see HPI, chills EENTM: see HPI, throat pain Respiratory: see HPI, cough, short of breath Genitourinary: no symptoms reported Musculoskeletal: no symptoms reported Skin: no symptoms reported Psychiatric/Neurological: No Symptoms Reported Hematologic/Lymphatic: No Symptoms Reported Immunological/Allergic: no symptoms reported Past Gfelihh-Xuupft-Gjvepo Hx Patient Social History Alcohol Use: Occasionally Uses Recreational Drug Use: No 2nd Hand Smoke Exposure: No Recent Foreign Travel: No Contact w/Someone Who Travel: No Physical Exam Vital Signs - First Documented 03/03/20 12:25 Temp 37.0 Pulse 83 Resp 20 B/P (MAP) 148/87 (107) Pulse Ox 98 O2 Delivery Room Air Capillary Refill : Height: '" Weight: lbs. oz. kg; BMI Method: General Appearance: WD/WN, no apparent distress, other (no distress, speaks in full sentences. Oxygen saturation 100% room air.) Eyes: Bilateral Eye Normal Inspection, Bilateral Eye PERRL, Bilateral Eye EOMI HEENT: PERRL/EOMI, normal ENT inspection Neck: non-tender, full range of motion Respiratory: normal breath sounds, no respiratory distress, no accessory muscle use, other (clear no accessory muscle use no wheezing good air movement) Cardiovascular: regular rate, rhythm, no murmur Gastrointestinal: normal bowel sounds, non tender, soft Neurologic/Psychiatric: alert, normal mood/affect, oriented x 3 Skin: normal color, warm/dry Progress/Results/Core Measures Suspected Sepsis SIRS Temperature: Pulse: Respiratory Rate: Laboratory Tests 03/03/20 12:36: White Blood Count 6.5 Blood Pressure / Mean: Laboratory Tests 03/03/20 12:36: Creatinine 0.92, Platelet Count 329, Total Bilirubin 0.3 Results/Orders Lab Results Laboratory Tests Test 03/03/20 12:30 03/03/20 12:36 Range/Units White Blood Count 6.5 4.3-11.0 10^3/uL Red Blood Count 4.68 4.35-5.85 10^6/uL Hemoglobin 10.1 L 11.5-16.0 G/DL Hematocrit 34 L 35-52 % Mean Corpuscular Volume 72 L 80-99 FL Mean Corpuscular Hemoglobin 22 L 25-34 PG Mean Corpuscular Hemoglobin Concent 30 L 32-36 G/DL Red Cell Distribution Width 23.8 H 10.0-14.5 % Platelet Count 329 130-400 10^3/uL Mean Platelet Volume 9.6 7.4-10.4 FL Neutrophils (%) (Auto) 56 42-75 % Lymphocytes (%) (Auto) 30 12-44 % Monocytes (%) (Auto) 9 0-12 % Eosinophils (%) (Auto) 4 0-10 % Basophils (%) (Auto) 1 0-10 % Neutrophils # (Auto) 3.7 1.8-7.8 X 10^3 Lymphocytes # (Auto) 2.0 1.0-4.0 X 10^3 Monocytes # (Auto) 0.6 0.0-1.0 X 10^3 Eosinophils # (Auto) 0.3 0.0-0.3 10^3/uL Basophils # (Auto) 0.1 0.0-0.1 10^3/uL D-Dimer 0.45 0.00-0.49 UG/ML Sodium Level 138 135-145 MMOL/L Potassium Level 3.7 3.6-5.0 MMOL/L Chloride Level 107 98-107 MMOL/L Carbon Dioxide Level 23 21-32 MMOL/L Anion Gap 8 5-14 MMOL/L Blood Urea Nitrogen 10 7-18 MG/DL Creatinine 0.92 0.60-1.30 MG/DL Estimat Glomerular Filtration Rate > 60 BUN/Creatinine Ratio 11 Glucose Level 110 H 70-105 MG/DL Calcium Level 8.7 8.5-10.1 MG/DL Corrected Calcium 8.8 8.5-10.1 MG/DL Total Bilirubin 0.3 0.1-1.0 MG/DL Aspartate Amino Transf (AST/SGOT) 13 5-34 U/L Alanine Aminotransferase (ALT/SGPT) 17 0-55 U/L Alkaline Phosphatase 74 40-136 U/L Lactate Dehydrogenase 274 H 125-220 U/L C-Reactive Protein High Sensitivity 1.12 H 0.00-0.50 MG/DL Total Protein 7.6 6.4-8.2 GM/DL Albumin 3.9 3.2-4.5 GM/DL Procalcitonin 0.02 <0.10 NG/ML Micro Results Microbiology 03/03/20 Influenza Types A,B Antigen (KAVON) - Final, Complete My Orders Orders - PRETTY CALDWELL APRN Cbc With Automated Diff (03/03/20 12:42) Hs C Reactive Protein (03/03/20 12:42) Comprehensive Metabolic Panel (03/03/20 12:42) LDH (03/03/20 12:42) Fibrin Degradation Products (03/03/20 12:42) Influenza A And B Antigens (03/03/20 12:42) Coronavirus Sars-Cov-2 So 2018 (03/03/20 12:42) Chest 1 View, Ap/Pa Only (03/03/20 12:42) Procalcitonin (Pct) (03/03/20 12:42) BNP (03/03/20 12:49) Medications Given in ED Current Medications Medications Dose Ordered Sig/Jamie Route Start Time Stop Time Status Last Admin Dose Admin Benzonatate 100 mg STK-MED ONCE PO 03/03/20 12:32 03/03/20 12:39 DC 03/03/20 12:39 200 MG Vital Signs/I&O 03/03/20 12:25 Temp 37.0 Pulse 83 Resp 20 B/P (MAP) 148/87 (107) Pulse Ox 98 O2 Delivery Room Air Capillary Refill : Diagnostic Imaging Diagonstic Imaging: CT Comments NAME: MARI HELLER [facility] REC#: [id number] PT STATUS: REG ER : 1970 PHYSICIAN: PRETTY CALDWELL APRN ADMIT DATE: 03/03/20/ER Draft Date of Exam:03/03/20 CHEST 1 VIEW, AP/PA ONLY INDICATION: Worsening shortness of breath and cough. TIME OF EXAM: 01:12 p.m. COMPARISON: No prior studies are available for comparison. FINDINGS: The heart size is normal. The pulmonary vascularity is unremarkable. The lungs are clear. No infiltrate, effusion or pneumothorax is detected. IMPRESSION: No acute cardiopulmonary process is detected. Dictated on workstation # [id number] Dict: 03/03/20 1316 Trans: 03/03/20 1319 [facility] [id number] Interpreted by: KASEY TURNER MD Electronically signed by: Departure Impression Primary Impression: Viral syndrome Disposition: HOME, SELF-CARE Condition: Stable Departure-Patient Inst. Decision time for Depature: 12:47 Referrals: LILIAM LAWLER DO (PCP/Family) Primary Care Physician Patient Instructions: Viral Syndrome (DC) Add. Discharge Instructions: 1. Tylenol for fever control and body aches. Robitussin for the cough. Covid Swab should be resulted tomorrow night. Scripts Benzonatate (TESSALON PERLES) 100 Mg Capsule 200 MG PO TID, #15 CAP Prov: PRETTY CALDWELL APRN 03/03/20 Work/School Note: Work Release Form Date Seen in the Emergency Department: March 03, 2020 Return to Work: March 06, 2020 PRETTY CALDWELL APRN March 03, 2020 12:49
[2020-03-03 13:03] LABS: ALANINE AMINOTRANSFERASE 17 U/L (0-55); ALBUMIN 3.9 GM/DL (3.2-4.5); ALKALINE PHOSPHATASE 74 U/L (40-136); BILIRUBIN,TOTAL 0.3 MG/DL (0.1-1.0); BUN/CREATININE RATIO 11; CALCIUM 8.7 MG/DL (8.5-10.1); CARBON DIOXIDE 23 MMOL/L (21-32); CHLORIDE 107 MMOL/L (98-107); CREATININE SERUM 0.92 MG/DL (0.60-1.30); GFR ESTIMATED > 60; GLUCOSE 110 MG/DL (70-105); POTASSIUM 3.7 MMOL/L (3.6-5.0); SODIUM 138 MMOL/L (135-145); TOTAL PROTEIN 7.6 GM/DL (6.4-8.2)
--- NOTE | 2020-03-03 13:19 | Diagnostic Imaging Report ---
INDICATION: Worsening shortness of breath and cough. TIME OF EXAM: 01:12 p.m. COMPARISON: No prior studies are available for comparison. FINDINGS: The heart size is normal. The pulmonary vascularity is unremarkable. The lungs are clear. No infiltrate, effusion or pneumothorax is detected. IMPRESSION: No acute cardiopulmonary process is detected. Dictated by: Dictated on workstation # [id number]
--- NOTE | 2020-03-03 13:21 | NUR ---
Pt resting comfortably in bed. Pt denies needs at this time.
[2020-03-03] MEDS ORDERED: BENZ100C18 PO (13:32)
[2020-03-03 13:41] VITALS: BP 148/79
== END 2020-03-03 13:46 | disposition home or self-care (01) ==
LOC: EDUNIT# 12:24 → ER 12:25
DX: B34.9 Viral infection, unspecified (principal); Z88.0 Allergy status to penicillin; Z88.5 Allergy status to narcotic agent; Z88.2 Allergy status to sulfonamides
CPT/HCPCS: 36415; 71045; 80053; 83615; 83880; 84145; 85025; 85379; 86141; 87635; 87804

== ENCOUNTER 2021-02-06 06:08 | Outpatient (CLI) | payer OTHER ==
[~2021-02-06] VITALS: Ht 162.6 cm; Wt 122.6 kg
[~2021-02-06 06:08] MED LIST changes: +BENZ100C18 PO; -RT-ALBUTEROL SULF 2.5 MG/3 ML PRE-MIX VIAL INH ONE
[2021-02-07] MEDS ORDERED: LEVO200C2 PO (09:33)
[2021-02-07] MEDS ORDERED: PARO20TA5 PO (09:33)
[2021-02-07] MEDS ORDERED: TOLT2TAB5 PO (09:33)
[2021-02-07] MEDS ORDERED: BUPR150T9 PO (09:33)
[2021-02-07] MEDS ORDERED: FLUT16SP22 NS (09:33)
[2021-02-07] MEDS ORDERED: MONT10TA32 PO (09:33)
== END 2021-02-07 10:58 ==
LOC: PREOP 06:08
PROVIDERS: ATTEND Surgery
DX: Z01.812 Encounter for preprocedural laboratory examination (principal); Z20.822 Contact with and (suspected) exposure to COVID-19

== ENCOUNTER 2021-02-13 08:59 | Day surgery (SDC) | payer OTHER ==
[~2021-02-13] VITALS: Ht 162.6 cm; Wt 122.6 kg
[~2021-02-13 08:59] MED LIST changes: +BUPR150T9 PO; +FLUT16SP22 NS; +LACTATED RINGERS 1,000 ML IV ONE; +LEVO200C2 PO; +MONT10TA32 PO; +PARO20TA5 PO; +TOLT2TAB5 PO
[2021-02-13] MEDS ORDERED: LACTATED RINGERS 1,000 ML IV STA (09:01)
[2021-02-13 09:21] VITALS: BP 163/91
[2021-02-13] MEDS ORDERED: MIDAZOLAM 2 MG/2 ML (VERSED) VIAL ONE (10:09)
[2021-02-13] MEDS ORDERED: PROPOFOL INJECTION 50 ML IV ONE (10:09)
--- NOTE | 2021-02-13 11:03 | Progress Note-Post Operative ---
Post-Operative Progess Note Surgeon (s)/Aviation Ordnance Officer (s) Surgeon SANTOS REYES DO Aviation Ordnance Officer: na Pre-Operative Diagnosis screening colonoscopy, family hx colon cancer, hx polyps Post-Operative Diagnosis sigmoid polyp Procedure & Operative Findings Date of Procedure 02/13/21 Procedure Performed/Findings colonoscopy c hot bx polypectomy Anesthesia Type per investigations consultant Estimated Blood Loss Estimated blood loss (mL): none Specimens/Packing Specimens Removed sigmoid polyp SANTOS REYES DO Feb 13, 2021 11:03
[2021-02-13 11:06] VITALS: BP 125/68
--- NOTE | 2021-02-13 11:06 | Discharge Inst-Simple/Standard ---
Discharge Inst-Standard Patient Instructions/Follow Up Plan of Care/Instructions/FU: 2 weeks Onofre Activity as Tolerated: Yes Discharge Diet: Regular Diet SANTOS REYES DO Feb 13, 2021 11:06
[2021-02-13 11:11] VITALS: BP 126/78
[2021-02-13 11:15] VITALS: BP 162/95
[2021-02-13 11:45] VITALS: BP 171/93
[2021-02-13 12:00] VITALS: BP 171/93
--- NOTE | 2021-02-13 14:13 | Anesthesia-General Post-Op ---
MAC Patient Condition Mental Status/LOC: Same as Preop Cardiovascular: Satisfactory Nausea/Vomiting: Absent Respiratory: Satisfactory Pain: Controlled Complications: Absent Post Op Complications Complications None Follow Up Care/Instructions Patient Instructions None needed. Anesthesiology Discharge Order Discharge Order Patient is doing well, no complaints, stable vital signs, no apparent adverse anesthesia problems. No complications reported per nursing. TARA GRAYSON CRNA Feb 13, 2021 14:13
--- NOTE | 2021-02-13 17:22 | OPERATIVE REPORT ---
DATE OF SERVICE: 02/13/2021 PREOPERATIVE DIAGNOSES: Screening colonoscopy, family history of colon cancer, and history of polyps. POSTOPERATIVE DIAGNOSIS: Sigmoid colon polyp. PROCEDURES PERFORMED: Colonoscopy with hot biopsy polypectomy x1. SURGEON: Santos Adhikari DO. ANESTHESIA: Per PROJECT ARCHIVIST. ESTIMATED BLOOD LOSS: None. COMPLICATIONS: None. INDICATIONS FOR PROCEDURE: The patient is a 50-year-old female needing screening colonoscopy. She understands risks and benefits of procedure and wished to proceed with procedure. Consent was signed in the chart. DESCRIPTION OF PROCEDURE: The patient was taken to the endoscopy suite and placed in a left lateral recumbent position. Timeout was performed. Digital rectal exam was performed. There were no palpable polyps, masses or ulcerations. Scope was inserted in the rectum and advanced all the way to the cecum with minimal difficulty. Prep was adequate. Scope was then slowly retracted back. There were no polyps, masses or ulcerations within the cecum, ascending, transverse, descending colon. In the sigmoid colon, a small polyp was present, which hot biopsy polypectomy was performed. Scope was then continuously retracted back in the rectum, where it was also retroflexed noting no other pathology. Scope was returned to its normal position, slowly withdrawn until completely removed. The patient tolerated the procedure well without any complications. She was taken to recovery room in stable condition. RECOMMENDATIONS: The patient will follow up in the office in two weeks to discuss pathology results. The patient will need repeat colonoscopy in 5 years. Any issues before that be seen at that time. Job ID: [id number] DocumentID: [id number] Dictated Date: 02/13/2021 11:04:46 Mold Shop Supervisor Date: 02/13/2021 17:21:33 Dictated By: SANTOS ADHIKARI DO
== END 2021-02-13 12:00 | disposition home or self-care (01) ==
LOC: ENDO 08:59
PROVIDERS: ATTEND Surgery
DX: Z12.11 Encounter for screening for malignant neoplasm of colon (principal); K63.5 Polyp of colon; J45.909 Unspecified asthma, uncomplicated; E66.01 Morbid (severe) obesity due to excess calories; E03.9 Hypothyroidism, unspecified; F32.9 Major depressive disorder, single episode, unspecified; Z79.890 Hormone replacement therapy; Z68.42 Body mass index [BMI] 45.0-49.9, adult; Z79.899 Other long term (current) drug therapy; Z90.89 Acquired absence of other organs; Z86.010 Personal history of colon polyps; Z88.0 Allergy status to penicillin; Z87.891 Personal history of nicotine dependence; Z88.2 Allergy status to sulfonamides; Z80.3 Family history of malignant neoplasm of breast; Z83.3 Family history of diabetes mellitus; Z82.49 Family history of ischemic heart disease and other diseases of the circulatory system; Z20.822 Contact with and (suspected) exposure to COVID-19
CPT/HCPCS: 84703

== ENCOUNTER → 2021-03-09 | Outpatient (CLI) | payer OTHER ==
[~2021-03-09] MED LIST changes: -LACTATED RINGERS 1,000 ML IV ONE
--- NOTE | 2021-03-09 08:36 | Diagnostic Imaging Report ---
PROCEDURE: US Gallbladder. TECHNIQUE: Multiple real-time grayscale images were obtained over the right upper quadrant in various projections. INDICATION: Epigastric pain. Liver is normal in size at 16.9 cm. There is increased echogenicity throughout the liver consistent with hepatic steatosis. No discrete liver mass is identified. The portal vein is patent and shows normal direction of flow. Gallbladder does contain small stones. No wall thickening or biliary ductal dilatation is seen. Pancreas unremarkable. Aorta was obscured. IVC is patent. Right kidney is without calculi or hydronephrosis. There is no ascites. IMPRESSION: 1. Hepatic steatosis. 2. Cholelithiasis without evidence of acute cholecystitis. Dictated by: Dictated on workstation # [id number]
== END ==
LOC: RAD 07:31
PROVIDERS: ATTEND Surgery
DX: K76.0 Fatty (change of) liver, not elsewhere classified (principal); K80.20 Calculus of gallbladder without cholecystitis without obstruction
CPT/HCPCS: 76705

== ENCOUNTER → 2021-04-17 | Outpatient (CLI) | payer OTHER ==
[~2021-04-17] VITALS: Ht 162.5 cm; Wt 122.7 kg
[~2021-04-17] MED LIST changes: +ACHD5005 PO; +DOCU-143 PO
== END | disposition home or self-care (01) ==
LOC: PREOP 05:32
PROVIDERS: ATTEND Surgery
DX: Z01.818 Encounter for other preprocedural examination (principal)

== ENCOUNTER 2021-04-19 09:17 | Day surgery (SDC) | payer OTHER ==
[2021-04-19] VITALS (11 sets, daily range): BP systolic 112–173; BP diastolic 43–97
[~2021-04-19] VITALS: Ht 162.5 cm; Wt 122.7 kg
[~2021-04-19 09:17] MED LIST changes: -ACHD5005 PO; +CLINDAMYCIN 600 MG/50 ML IVPB 50 ML IV ONE; -DOCU-143 PO; +LACTATED RINGERS 1,000 ML IV PRN
[2021-04-19] MEDS ORDERED: LIDOCAINE/EPI 1%-1:100,000 (XYLOCAINE) 20ML ONE (09:27)
[2021-04-19] MEDS ORDERED: CLINDAMYCIN 600 MG/50 ML IVPB 50 ML IV ONE (09:30)
--- NOTE | 2021-04-19 09:38 | Progress Note-Pre Operative ---
Pre-Operative Progress Note H&P Reviewed The H&P was reviewed, patient examined and no changes noted. Date Seen by Provider: Apr 19, 2021 Time Seen by Provider: 09:37 Date H&P Reviewed: Apr 19, 2021 Time H&P Reviewed: 09:37 Pre-Operative Diagnosis: cholelithiasis SANTOS REYES DO Apr 19, 2021 09:38
[2021-04-19] MEDS: LACTATED RINGERS 1,000 ML IV PRN ×2 (09:45→11:04)
[2021-04-19] MEDS ORDERED: LIDOCAINE PF 2% 5 ML (XYLOCAINE) VIAL ONE (09:54)
[2021-04-19] MEDS ORDERED: ONDANSETRON 4 MG/2 ML (SDV) Z0FRAN ONE (09:54)
[2021-04-19] MEDS ORDERED: SEVOFLURANE (ULTANE) 15 ML INHAL SOLN ONE (09:54)
[2021-04-19] MEDS ORDERED: MIDAZOLAM 2 MG/2 ML (VERSED) VIAL ONE (09:54)
[2021-04-19] MEDS ORDERED: proPOfol 200 MG/20 ML (DIPRIVAN) VIAL IV ONE (09:54)
[2021-04-19] MEDS ORDERED: NEOSTIGMINE 3 MG/3 ML VIAL ONE (09:54)
[2021-04-19] MEDS ORDERED: fentaNYL INJ 100 MCG/2 ML AMP ONE (09:54)
[2021-04-19] MEDS ORDERED: GLYCOPYRROLATE 0.2 MG/ML (ROBINUL) 2 ML VIAL ONE (09:54)
[2021-04-19] MEDS ORDERED: ROCURONIUM 10 MG/ML 5 ML SYRINGE IV ONE (09:54)
[2021-04-19 09:56] LABS: BASOPHILS # (AUTO) 0.1 10^3/uL (0.0-0.1); BASOPHILS % (AUTO) 1 % (0-10); EOSINOPHILS # (AUTO) 0.2 10^3/uL (0.0-0.3); EOSINOPHILS % (AUTO) 3 % (0-10); HEMATOCRIT 37 % (35-52); HEMOGLOBIN 11.3 g/dL (11.5-16.0); LYMPHOCYTES # (AUTO) 1.7 10^3/uL (1.0-4.0); LYMPHOCYTES % (AUTO) 30 % (12-44); MEAN CORPUSCULAR HEMOGLOBIN 24 pg (25-34); MEAN CORPUSCULAR HGB CONC 31 g/dL (32-36); MEAN CORPUSCULAR VOLUME 79 fL (80-99); MONOCYTES # (AUTO) 0.4 10^3/uL (0.0-1.0); MONOCYTES % (AUTO) 8 % (0-12); NEUTROPHILS # (AUTO) 3.4 10^3/uL (1.8-7.8); NEUTROPHILS % (AUTO) 58 % (42-75); PLATELET COUNT 275 10^3/uL (130-400); WHITE BLOOD COUNT 5.8 10^3/uL (4.3-11.0)
--- NOTE | 2021-04-19 11:30 | Progress Note-Post Operative ---
Post-Operative Progess Note Surgeon (s)/Toll Collector (s) Surgeon SANTOS REYES DO Toll Collector: Dr. Miller to assist in retraction dissection and closure. Pre-Operative Diagnosis cholelithiasis Post-Operative Diagnosis chronic cholecystitis, cholelithiasis Procedure & Operative Findings Date of Procedure 04/19/21 Procedure Performed/Findings PROCEDURE: Laparoscopic cholecystectomy with intraoperative cholangiogram. COMPLICATIONS: None. PROCEDURE: The patient was taken to the operating suite and was prepped and draped in sterile fashion. A surgical pause was performed. Just superior to the umbilicus, a 12 mm incision was made. Dissection was taken down to the fascia, which was then scored and grasped with a Eleonora and the abdomen was then entered. A 0 Vicryl suture was placed in a ycmwwn-xs-lcvgw fashion and a Teague trocar was placed and secured. Pneumoperitoneum was achieved. A 5mm trochar place in the subxyphoid and 2 in the right upper quadrant. Adhesions to gallbladder and liver were taken down with cautery. The gallbladder was then grasped and elevated. The cystic duct was then dissected out. Clip was placed on the distal portion of the cystic duct which was then partially transected. An arrow catheter was inserted into the duct. The cholangiogram was then performed. No filing defects and contrast made its way into the duodenum. Catheter removed. Clips were placed on proximal portion of the cystic duct and then the duct was then transected. Clips were placed along the proximal and distal portion of the cystic artery which was then transected. Hook cautery was used to dissect the gallbladder from the gallbladder fossa achieving hemostasis. The gallbladder was placed in an Endobag and removed through the 12 mm trocar site. The abdomen was then reinspected. Copious amounts of irrigation were used to irrigate the abdomen and there were no signs of active bleeding. Hemostasis had been achieved. The 12 mm fascial defect was then closed with 0 Vicryl suture that had been placed in a lnetco-cj-adxun fashion. The abdomen was then desufflated, the trocars were removed. The abdomen was then washed and dried. The skin was then closed using 4-0 Monocryl in a subcuticular fashion. The abdomen was washed and dried and Skin Affix was place over incisions. Patient tolerated the procedure well without any complications and was taken to the recovery room in stable condition. Anesthesia Type general Estimated Blood Loss Estimated blood loss (mL): minimal Specimens/Packing Specimens Removed gallbladder SANTOS REYES DO Apr 19, 2021 11:30
[2021-04-19] MEDS ORDERED: DOCU-143 PO (11:31)
[2021-04-19] MEDS ORDERED: ACHD5005 PO (11:31)
--- NOTE | 2021-04-19 11:32 | Discharge Inst-Simple/Standard ---
Discharge Inst-Standard Discharge Medications New, Converted or Re-Newed RX: Transmitted to Pharmacy Patient Instructions/Follow Up Plan of Care/Instructions/FU: 2 weeks Onofre Activity as Tolerated: No Discharge Diet: Regular Diet Other Inst to Patient Follow up Appt: Make appointment for 2 weeks. Instructions: No lifting greater than 10 pounds. No strenuous activity. May shower in 24 hours, no tub bath or soaking. Use incentive spirometer at home as directed. No Smoking Skin/Wound Care: You have special glue over incision, it will fall off on it's own. Symptoms to Report: Appetite Changes, Extremity Discoloration, Numbness/Tingling, Swelling Increased, Bleeding Excessive, Eyesight Changes, Pain Increased, Urine Color Change, Constipation(Persistent), Fever over 101 degree F, Pain/Pressure in chest, Urinating Difficulty, Cough Up/Vomit Blood, Heart Beat Irreg/Pounding, Pain/Pressure in jaw, Vaginal Bleeding Increase, Cramps in feet or legs, Lightheadedness, Pain/Pressure in shoulder, Diarrhea(Persistent), Memory Changes Suddenly, Questions/Concerns, Weight gain consecutive days, Dizziness/Fainting, Nausea/Vomiting, Shortness of Breath, Weight gain over 2 pounds. If eyes or skin turn yellow notify physician. If questions or concerns contact your physician Or seek help at emergency department. SANTOS REYES DO Apr 19, 2021 11:32
[2021-04-19] MEDS ORDERED: RT-ALBUTEROL SULF 2.5 MG/3 ML PRE-MIX VIAL ONE (11:36)
[2021-04-19] MEDS ORDERED: morphine INJ 10 MG/ML 1ML (SYR OR VIAL) IVP ONE (11:45)
[2021-04-19] MEDS ORDERED: HYDROmorphone 2 MG/ML VIAL (DILAUDID) IV ONE (11:45)
[2021-04-19] MEDS ORDERED: ONDANSETRON 4 MG/2 ML (SDV) Z0FRAN IVP PRN (11:45)
[2021-04-19] MEDS ORDERED: RT-ALBUTEROL SULF 2.5 MG/3 ML PRE-MIX VIAL INH ONE (11:45)
[2021-04-19] MEDS ORDERED: morphine INJ 10 MG/ML 1ML (SYR OR VIAL) ONE (11:52)
[2021-04-19] MEDS ORDERED: HYDROcodone/APAP 5 MG/325 MG (LORTAB) TAB PO ONE (12:30)
[2021-04-19] MEDS ORDERED: HYDROcodone/APAP 5 MG/325 MG (LORTAB) TAB ONE (12:32)
--- NOTE | 2021-04-19 12:59 | Diagnostic Imaging Report ---
Indication: Laparoscopic cholecystectomy. Study is performed for intraoperative cholangiogram. Fluoroscopy was provided in the OR during intraoperative cholangiogram. 9 seconds of fluoroscopic time was utilized. 40 images were obtained. Images demonstrate contrast being injected via the cystic duct remnant. Visualized intrahepatic and extrahepatic bile ducts are normal caliber. There is no filling defect to suggest retained stone. Contrast flows into the duodenum. IMPRESSION: Fluoroscopy during intraoperative cholangiogram. Dictated by: Dictated on workstation # [id number]
--- NOTE | 2021-04-19 13:07 | Anesthesia-General Post-Op ---
General Patient Condition Mental Status/LOC: Same as Preop Cardiovascular: Satisfactory Nausea/Vomiting: Absent Respiratory: Satisfactory Pain: Controlled Complications: Absent Post Op Complications Complications None Follow Up Care/Instructions Patient Instructions None needed. Anesthesia/Patient Condition Patient Condition Patient is doing well, no complaints, stable vital signs, no apparent adverse anesthesia problems. MARICRUZ MENESES DO Apr 19, 2021 13:07
== END 2021-04-19 13:55 | disposition home or self-care (01) ==
LOC: SDC 09:17
PROVIDERS: ATTEND Surgery
DX: K80.10 Calculus of gallbladder with chronic cholecystitis without obstruction (principal); F32.9 Major depressive disorder, single episode, unspecified; G47.10 Hypersomnia, unspecified; E66.01 Morbid (severe) obesity due to excess calories; Z68.42 Body mass index [BMI] 45.0-49.9, adult; Z79.899 Other long term (current) drug therapy; Z87.891 Personal history of nicotine dependence
CPT/HCPCS: 36415; 76000; 85025; 87081; 88304

== ENCOUNTER 2021-07-19 08:35 | Outpatient (CLI) | payer OTHER ==
[~2021-07-19] VITALS: Ht 165.1 cm; Wt 122.7 kg
[~2021-07-19 08:35] MED LIST changes: +ACHD5005 PO; -CLINDAMYCIN 600 MG/50 ML IVPB 50 ML IV ONE; +DOCU-143 PO; -LACTATED RINGERS 1,000 ML IV PRN; +TOLT2TAB19 PO; -TOLT2TAB5 PO
[2021-07-19 08:50] VITALS: BP 177/89
[2021-07-19] MEDS ORDERED: IRON DEXTRAN 1,000 MG/NS 250 ML IVPB IV ONE ×2 (09:00)
[2021-07-19] MEDS ORDERED: IRON DEXTRAN 25 MG/NS 6.25 ML TOTAL VOLUME IV ONE ×3 (09:00)
== END 2021-07-19 12:19 | disposition home or self-care (01) ==
LOC: SDC 08:35 → EDSTATUS 08:37 → SDC 12:19
PROVIDERS: ATTEND Internal Medicine
DX: E61.1 Iron deficiency (principal)
CPT/HCPCS: 96365

== ENCOUNTER → 2021-09-05 | Outpatient (CLI) | payer OTHER ==
--- NOTE | 2021-09-05 10:55 | Diagnostic Imaging Report ---
Indication: Routine screening. Comparison is made with prior mammogram 02/01/2019 and 09/13/2016. 2-D and 3-D bilateral screening mammography was performed with CAD. Both breasts are heterogeneously dense, limiting the sensitivity of mammography. The parenchymal pattern is stable. No mass or malignant appearing microcalcifications are seen. Axillae are unremarkable. IMPRESSION: BI-RADS Category 1 No mammographic features suspicious for malignancy are identified. ACR BI-RADS Category 1: Negative. Result letter will be mailed to the patient. Note: At least 10% of breast cancer is not imaged by mammography. Dictated by: Dictated on workstation # [id number]
== END ==
LOC: RAD 07:45
PROVIDERS: ATTEND Internal Medicine
DX: Z12.31 Encounter for screening mammogram for malignant neoplasm of breast (principal)
CPT/HCPCS: 77063; 77067